=== PATIENT | female | born 1990 | race Caucasian/White ===

== ENCOUNTER → 2023-09-20 | Outpatient (CLI) | payer BC ==
[2023-09-20 12:02] LABS: HEMATOCRIT 40.6 % (37.0-47.0); HEMOGLOBIN 13.4 g/dL (12.5-16.0); MEAN CELL VOLUME 85 fl (78-100); MEAN CORPUSCULAR HEMOGLOBIN 28 pg (27-31); MEAN CORPUSCULAR HGB CONC 33 g/dL (33-37); MEAN PLATELET VOLUME 9.7 fl (7.4-10.4); PLATELET COUNT 351 K/mm3 (130-400); RED BLOOD COUNT 4.76 M/mm3 (4.10-5.30); RED CELL DISTRIBUTION WIDTH 13.4 % (11.5-14.5); WHITE BLOOD COUNT 13.9 K/mm3 (4.8-10.8)
[2023-09-20 12:11] LABS: ALBUMIN 4.3 g/dL (3.5-5.0)
[2023-09-20 12:12] LABS: CALCIUM 9.5 mg/dL (8.3-10.5)
[2023-09-20 12:14] LABS: TOTAL PROTEIN 7.4 g/dL (6.4-8.3)
[2023-09-20 12:15] LABS: TOTAL BILIRUBIN 0.3 mg/dL (0.2-1.2)
[2023-09-20 13:05] LABS: LYMPHOCYTE 28 % (20-51); MONOCYTE 5 % (3-10); NEUTROPHILS 43 % (42-75)
[2023-09-20 23:19] LABS: T3 FREE 2.7 pg/mL (1.7-3.7)
== END ==
LOC: LAB 11:36
PROVIDERS: Family Medicine
DX: E03.9 Hypothyroidism, unspecified (principal); E55.9 Vitamin D deficiency, unspecified; I10 Essential (primary) hypertension; E78.5 Hyperlipidemia, unspecified; J30.2 Other seasonal allergic rhinitis